=== PATIENT | male | born 1995 | race African-American/Black ===

== ENCOUNTER 2016-08-11 16:35 | Emergency (ER) | payer SELFPAY ==
[2016-08-11 16:43] VITALS: BP 117/73; PULSE 88; RESP 16; TEMP 97.7; O2SAT 99
--- NOTE | 2016-08-11 17:03 | EDPHY ---
H & P Stated Complaint: Occ sharp pain in chest since he was "little";nausea x3 days; denies drugs Time Seen by Provider: 08/11/16 16:53 HPI/ROS: CHIEF COMPLAINT: Chest pain HISTORY OF PRESENT ILLNESS: The patient is a 21-year-old man with no significant past medical history comes to the emergency department complaining chest pain and anxiety. He has had the symptoms for about the last 2 days. He denies any trauma. He denies shortness of breath illness. No cough. He does not have any nausea vomiting diaphoresis. His symptoms do not worsen with exertion. He was jogging yesterday without difficulty. He denies travel. He denies recent surgery procedure. He does not smoke. He denies any recent drug or alcohol recently. REVIEW OF SYSTEMS: Constitutional: denies: chills, fever, recent illness, recent injury EENTM: denies: blurred vision, double vision, nose congestion Respiratory: denies: cough, shortness of breath Cardiac: See HPI denies: irregular heart rate, lightheadedness, palpitations Gastrointestinal/Abdominal: denies: abdominal pain, diarrhea, nausea, vomiting, blood streaked stools Genitourinary: denies: dysuria, frequency, hematuria, pain Musculoskeletal: denies: joint pain, muscle pain Skin: denies: lesions, rash, jaundice, bruising Neurological: denies: headache, numbness, paresthesia, tingling, dizziness, weakness Hematologic/Lymphatic: denies: blood clots, easy bleeding, easy bruising Immunologic/allergic: denies: HIV/AIDS, transplant EXAM: GENERAL: Well-appearing, well-nourished and in no acute distress. HEAD: Atraumatic, normocephalic. EYES: Pupils equal round and reactive to light, extraocular movements intact, sclera anicteric, conjunctiva are normal. ENT: TMs normal, nares patent, oropharynx clear without exudates. Moist mucous membranes. NECK: Normal range of motion, supple without lymphadenopathy or JVD. LUNGS: Breath sounds clear to auscultation bilaterally and equal. No wheezes rales or rhonchi. HEART: Regular rate and rhythm without murmurs, rubs or gallops. ABDOMEN: Soft, nontender, normoactive bowel sounds. No guarding, no rebound. No masses appreciated. BACK: No CVA tenderness, no spinal tenderness, step-offs or deformities EXTREMITIES: Normal range of motion, no pitting or edema. No clubbing or cyanosis. NEUROLOGICAL: Cranial nerves II through XII grossly intact. Normal speech, normal gait. 5/5 strength, normal movement in all extremities, normal sensation PSYCH: Normal mood, normal affect. SKIN: Warm, dry, normal turgor, no visible rashes or lesions. Source: Patient Exam Limitations: No limitations - Personal History Current Tetanus Diphtheria and Acellular Pertussis (TDAP): Yes - Medical/Surgical History Hx Asthma: No Hx Chronic Respiratory Disease: No Hx Diabetes: No Hx Cardiac Disease: No Hx Renal Disease: No Hx Cirrhosis: No Hx Alcoholism: No Other PMH: neg - Family History Significant Family History: No pertinent family hx - Social History Smoking Status: Former smoker Alcohol Use: Sober Drug Use: None Constitutional: Initial Vital Signs Temperature (C) 36.5 C 08/11/16 16:38 Heart Rate 88 08/11/16 16:38 Respiratory Rate 16 08/11/16 16:38 Blood Pressure 117/73 08/11/16 16:38 O2 Sat (%) 99 08/11/16 16:38 O2 Delivery Mode Room Air Allergies/Adverse Reactions: tree nut [Nuts] Allergy (Unknown, Verified 08/11/16 16:39) Home Medications: Medication Instructions Recorded NK [No Known Home Meds] 08/11/16 Medical Decision Making - Diagnostics EKG Interpretation: An EKG obtained and was read and documented in trace view. Please see trace view for full reading and report. ED Course/Re-evaluation: The patient is well appearing. He is primarily anxious. Declines medication. He is reassured by the EKG. I will have him follow up with primary care. He declines further workup or testing at this time. We discussed indications for returning. PERC score negative. Differential Diagnosis: Partial list of the Differential diagnosis considered include but were not limited to; anxiety, acute coronary disease, arrhythmia and although unlikely based on the history and physical exam, I also considered PE, dissection, pneumonia. I discussed these differential diagnoses and the plan with the patient as well as the usual and expected course. The patient understands that the diagnosis is provisional and that in medicine we are not always correct and that further workup is often warranted. Usual and customary warnings were given. All of the patient's questions were answered. The patient was instructed to return to the emergency department should the symptoms at all worsen or return, otherwise to followup with the physician as we discussed. Departure - Departure Disposition: Home, Routine, Self-Care Clinical Impression: Anxiety Chest pain Qualifiers: Chest pain type: unspecified Qualified Code(s): R07.9 - Chest pain, unspecified Condition: Fair Instructions: Chest Pain (ED), Anxiety (ED) Referrals: [facility],. [Clinic] - As per Instructions Mark Weston MD [Medical Doctor] - As per Instructions
--- NOTE | 2016-08-11 17:04 | CPEKG ---
Heart Rate: 70 RR Interval: 857 P-R Interval: 140 QRSD Interval: 82 QT Interval: 356 QTC Interval: 385 P Independence: 77 QRS Independence: 76 T Wave Independence: 56 EKG Severity - ABNORMAL ECG - EKG Impression: SINUS RHYTHM Electronically Signed By: Ludwig Carter 11-Aug-2016 17:11:03
== END 2016-08-11 17:15 | disposition home or self-care (01) ==
DX: R07.9 Chest pain, unspecified (principal); F41.9 Anxiety disorder, unspecified; Z87.891 Personal history of nicotine dependence

== ENCOUNTER 2016-08-13 18:42 | Emergency (ER) | payer SELFPAY ==
[2016-08-13 18:56] VITALS: BP 147/99; PULSE 89; RESP 16; TEMP 98.4; O2SAT 96
--- NOTE | 2016-08-13 18:59 | EDPHY ---
H & P Time Seen by Provider: 08/13/16 18:48 HPI/ROS: CHIEF COMPLAINT: I just feel weird HISTORY OF PRESENT ILLNESS: This 21-year-old man noticed a lump on his back last night and his friend removed it and said it might have been a tick. His friend showed him part of what was looked like a tiny black insect. Unclear if it was a tick or not. This happened in sk[place]. Today says he just feels weird. Is a little bit of nausea. No other symptoms. REVIEW OF SYSTEMS: Eye: no change in vision ENT: no sore throat Cardiac: no chest pain or syncope Pulmonary: no cough or SOB Abdomen: no vomiting, diarrhea, abdominal pain Musculoskeletal: no back pain Skin: no rash, see HPI Neuro: no headache Constitutional: no fever : no urinary symptoms A comprehensive 10 point review of systems is otherwise negative aside from elements mentioned in the history of present illness. PAST MEDICAL HISTORY: Emergency department chart dated 08/11/2016 personally reviewed. No past medical history. Social history: Nonsmoker General Appearance: Alert and conversant, cooperative. Eyes: No scleral icterus. ENT, Mouth: Normal mucous membranes. Respiratory: Normal respiratory effort, breath sounds equal, lungs are clear to auscultation. Cardiovascular: Regular rate and rhythm. Gastrointestinal: Abdomen is soft and non tender. Neurological: Alert and oriented x3. Normally conversant. Face symmetric, normal movement and sensation in all extremities. Ambulatory. Skin: Warm and dry, no rashes. The patient's site of possible insect bite on his right posterior shoulder was examined. There is a small punctum but no surrounding skin rash. No swelling and no redness and no drainage or discharge. No target lesion. Musculoskeletal: No peripheral edema and no joint swelling. Psychiatric: Not agitated. Emergency Department course/MDM: Unclear if this was a tick bite or some other insect. Reassured the patient that unlikely to be Lyme disease given the current epidemiology distribution of that illness. I think it is also unlikely to be any other acute tick borne illness. CDC web site reviewed. Patient is reassured and can be discharged with primary care follow-up Smoking Status: Former smoker Constitutional: Initial Vital Signs Temperature (C) 36.9 C 08/13/16 18:53 Heart Rate 89 08/13/16 18:53 Respiratory Rate 16 08/13/16 18:53 Blood Pressure 147/99 H 05/10/17 18:53 O2 Sat (%) 96 08/13/16 18:53 O2 Delivery Mode Room Air Allergies/Adverse Reactions: tree nut [Nuts] Allergy (Unknown, Verified 08/13/16 18:52) Home Medications: Medication Instructions Recorded NK [No Known Home Meds] 08/11/16 MDM/Departure - Depart Disposition: Home, Routine, Self-Care Clinical Impression: insect bite Condition: Good Instructions: Insect Bite or Sting (ED) Referrals: [facility],. [Clinic] - As per Instructions
== END 2016-08-13 19:09 | disposition home or self-care (01) ==
DX: S40.261A Insect bite (nonvenomous) of right shoulder, initial encounter (principal); Z87.891 Personal history of nicotine dependence; W57.XXXA Bitten or stung by nonvenomous insect and other nonvenomous arthropods, initial encounter